=== PATIENT | female | born 1980 | race Caucasian/White ===

== ENCOUNTER 2018-09-10 11:03 | Emergency (ER) | payer MEDICAID ==
[~2018-09-10] VITALS: Ht 149.9 cm; Wt 71.0 kg
[2018-09-10 11:46] VITALS: BP 138/79
[2018-09-10 13:43] LABS: CULTURE INDICATED? YES; MICROSCOPIC INDICATED
[2018-09-10] MEDS ORDERED: CEFTRIAXONE 1,000 MG ONE (14:17)
[2018-09-10] MEDS ORDERED: LIDOCAINE-MPF 1%, 5ML ONE (14:17)
[2018-09-10] MEDS ORDERED: CEFTRIAXONE 1,000 MG IM ONE (14:30)
== END 2018-09-10 14:39 | disposition home or self-care (01) ==
LOC: ED 14:18
DX: J06.9 Acute upper respiratory infection, unspecified (principal); N30.01 Acute cystitis with hematuria; Z59.0 Homelessness; F19.20 Other psychoactive substance dependence, uncomplicated; Z72.9 Problem related to lifestyle, unspecified
CPT/HCPCS: 71046; 81001; 87077; 87086; 87186; 96372; 99284; J0696

== ENCOUNTER 2018-09-11 12:51 | Emergency (ER) | payer MEDICAID ==
[~2018-09-11] VITALS: Ht 149.9 cm; Wt 76.0 kg
[2018-09-11 14:05] LABS: BASOPHILS # (AUTO) 0.06 x10^3/uL (0-0.1); BASOPHILS % (AUTO) 1 % (0-1); EOSINOPHILS % (AUTO) 1 % (1-7); LYMPHOCYTES # (AUTO) 2.71 x10^3/uL (1-3.4); LYMPHOCYTES % (AUTO) 25 % (22-44); MD NO; MEAN CORPUSCULAR HEMOGLOBIN 29.9 pg (27.0-34.8); MEAN CORPUSCULAR HGB CONC 33.8 g/dL (32.4-35.8); MEAN CORPUSCULAR VOLUME 88.5 fL (80-100); MEAN PLATELET VOLUME 8.1 fL (7.4-10.4); MONOCYTES # (AUTO) 0.81 x10^3/uL (0.2-0.8); MONOCYTES % (AUTO) 7 % (2-9); NEUTROPHILS # (AUTO) 7.27 x10^3/uL (1.8-6.8); NEUTROPHILS % (AUTO) 66 % (42-75); PLATELET COUNT 316 x10^3/uL (130-400); RED BLOOD COUNT 5.08 x10^6/uL (3.82-5.3); RED CELL DISTRIBUTION WIDTH 14.5 % (9.6-15.2)
[2018-09-11 14:14] LABS: ALANINE AMINOTRANSFERASE 26 U/L (12-78); ANION GAP 7 mmol/L (5-15); CALCIUM 8.3 mg/dL (8.5-10.1); CHLORIDE 111 mmol/L (98-107); SALICYLATE LEVEL 1.8 mg/dL (2.8-20.0)
[2018-09-11 14:19] LABS: ALKALINE PHOSPHATASE 85 U/L (45-117); BILIRUBIN,TOTAL 0.4 mg/dL (0.2-1.0); TOTAL PROTEIN 7.4 g/dL (6.4-8.2)
[2018-09-11 14:20] LABS: ACETAMINOPHEN < 2 mcg/mL (10-30)
[2018-09-11 18:44] VITALS: BP 134/78
== END 2018-09-11 18:47 | disposition home or self-care (01) ==
LOC: ED 13:37
DX: F33.9 Major depressive disorder, recurrent, unspecified (principal); Z72.9 Problem related to lifestyle, unspecified; F15.20 Other stimulant dependence, uncomplicated
CPT/HCPCS: 36415; 80053; 80307; 80329; 84703; 85025; 99284; G0480